=== PATIENT | male | born 1980 | race Caucasian/White ===

== ENCOUNTER → 2017-06-26 08:41 | Outpatient (CLI) | payer OTHER, SELFPAY ==
[2017-06-26 12:22] LABS: Absolute Lymphocyte Count 1.35 X10^3/ul (0.83-4.51); Absolute Neutrophil Count 3.4 X10^3/uL (2.0-7.7); Basophil# 0.04 X10^3/uL; Basophil% 0.7 % (0-1); Eosinophil# 0.12 X10^3/uL; Eosinophils% 2.2 % (0-5); Hematocrit 45.9 % (40-54); Hemoglobin 15.6 g/dl (13.0-16.5); Lymphocyte # 1.35 X10^3/ul (4.0); Mean Corpuscular Hgb 30.3 pg (27.0-32.0); Mean Corpuscular Volume 89.1 fL (80-94); Mean Platelet Vol. 11.6 fl (6.2-12.0); Monocyte# 0.54 X10^3/uL; Neutrophil # 3.35 X10^3/uL (2.7-7.7); Neutrophil % 61.9 % (47-70); Platelet Count 233 K/mm3 (150-450); RBC Distribution Width CV 12.4 % (11.6-14.6); RBC Distribution Width SD 40.3 fl (35.1-43.9); Red Blood Count 5.15 M/mm3 (4.6-6.2); White Blood Count 5.4 K/mm3 (4.4-11.0)
[2017-06-26 12:35] LABS: POSITIVE COUNT NO; POSITIVE DIFFERENTIAL NO; POSITIVE MORPHOLOGY NO
[2017-06-26 12:38] LABS: ALB/GLOB Ratio 1.4 RATIO (0.9-2.4); AST(SGOT) 16 U/L (15-37); Alanine Aminotransfer ALT/SGPT 29 U/L (16-61); Albumin, Serum 4.3 g/dL (3.2-5.0); Alkaline Phosphatase 60 U/L (45-117); Anion Gap 7 (5-15); BUN 17 mg/dL (7-18); BUN/Creat Ratio 15.9 RATIO (10-20); Calcium,Total 9.1 mg/dL (8.5-10.1); Chloride 103 mmol/L (98-107); Cholesterol 185 mg/dL (200); Creatinine, Serum 1.07 mg/dL (0.70-1.30); EST Glomerular Filtration Rate 82 mL/min (>60); Est Glom Filt Rate - Afr Amer 100 mL/min (>60); Globulin 3.1 g/dL (2.2-4.2); Glucose 85 mg/dL (74-106); High Density Lipoprotein 69 mg/dL; Potassium 4.3 mmol/L (3.5-5.1); Protein, Total 7.4 g/dL (6.4-8.2); Sodium Level 138 mmol/L (136-145); Triglycerides 63 mg/dL; Very Low Density Lipoprotein 13 mg/dL (5-40)
[2017-06-26 12:46] LABS: Vitamin D,25 Hydroxy 12.2 ng/mL (19.95-100.01)
[2017-06-26 16:51] LABS: Vitamin B12 707 pg/mL (211-911)
[2017-06-28 16:53] LABS: Endomysial Antibody IgA Negative (Negative)
[2017-06-29 16:05] LABS: Immunoglobulin A 201 mg/dL (90-386); t-Transglutaminase IgA <2 U/mL (0-3)
== END ==
PROVIDERS: Family Provider Family Medicine; PCP Family Medicine; Visit Provider Family Medicine
DX: K90.9 Intestinal malabsorption, unspecified (principal); E55.9 Vitamin D deficiency, unspecified; R53.83 Other fatigue; M79.1 Myalgia; Z83.42 Family history of familial hypercholesterolemia; Z13.220 Encounter for screening for lipoid disorders
CPT/HCPCS: 36415; 80053; 80061; 82306; 82607; 82784; 83516; 85025; 86255

== ENCOUNTER → 2018-06-28 17:25 | Outpatient (CLI) | payer OTHER, SELFPAY ==
[2018-06-28 18:16] LABS: Absolute Lymphocyte Count 1.61 X10^3/ul (0.83-4.51); Absolute Neutrophil Count 7.9 X10^3/uL (2.0-7.7); Basophil# 0.01 X10^3/uL; Basophil% 0.1 % (0-1); Eosinophil# 0.12 X10^3/uL; Eosinophils% 1.2 % (0-5); Hematocrit 44.6 % (40-54); Hemoglobin 14.6 g/dl (13.0-16.5); Lymphocyte # 1.61 X10^3/ul (4.0); Lymphocyte % 15.4 % (19-41); Mean Corp Hgb Conc 32.7 g/gl (32-36); Mean Corpuscular Hgb 29.9 pg (27.0-32.0); Mean Corpuscular Volume 91.2 fL (80-94); Mean Platelet Vol. 10.8 fl (6.2-12.0); Monocyte# 0.81 X10^3/uL; Monocyte% 7.8 % (0-10); Neutrophil # 7.87 X10^3/uL (2.7-7.7); Neutrophil % 75.4 % (47-70); POSITIVE COUNT NO; POSITIVE DIFFERENTIAL NO; POSITIVE MORPHOLOGY NO; Platelet Count 300 K/mm3 (150-450); RBC Distribution Width CV 12.1 % (11.6-14.6); RBC Distribution Width SD 40.2 fl (35.1-43.9); Red Blood Count 4.89 M/mm3 (4.6-6.2); White Blood Count 10.4 K/mm3 (4.4-11.0)
[2018-06-28 18:40] LABS: ALB/GLOB Ratio 1.1 RATIO (0.9-2.4); AST(SGOT) 17 U/L (15-37); Alanine Aminotransfer ALT/SGPT 24 U/L (16-61); Albumin, Serum 4.2 g/dL (3.2-5.0); Alkaline Phosphatase 75 U/L (45-117); Anion Gap 7 (5-15); BUN 18 mg/dL (7-18); BUN/Creat Ratio 18.2 RATIO (10-20); Calcium,Total 9.2 mg/dL (8.5-10.1); Chloride 105 mmol/L (98-107); Creatinine, Serum 0.99 mg/dL (0.70-1.30); EST Glomerular Filtration Rate 90 mL/min (>60); Est Glom Filt Rate - Afr Amer 108 mL/min (>60); Globulin 3.7 g/dL (2.2-4.2); Glucose 85 mg/dL (74-106); Potassium 3.8 mmol/L (3.5-5.1); Protein, Total 7.9 g/dL (6.4-8.2); Sodium Level 138 mmol/L (136-145)
== END ==
PROVIDERS: Family Provider Family Medicine; PCP Family Medicine; Referring Provider Family Medicine; Visit Provider Family Medicine
DX: R53.83 Other fatigue (principal); R05 Cough
CPT/HCPCS: 80053; 85025

== ENCOUNTER 2018-09-02 03:36 | Emergency (ER) | payer OTHER, SELFPAY ==
[2018-09-02 03:37] VITALS: BP 141/96; PULSE 80; RESP 16; TEMP 36.5; O2SAT 96; BMI 23.4
--- NOTE | 2018-09-02 03:51 | ED.VIS.GEN ---
History of Present Illness Chief Complaint: Abd Pain Informant: Patient, Family Narrative: Patient stated he started having some left upper abdominal pain over the last couple days. He has 6 loose bowel movements that were pale yellow since midnight tonight. He has been nauseous with no vomiting. He said decreased oral intake secondary to his symptoms. He is never had this before. No bad food exposures. No sick contacts. No previous abdominal surgeries. Current severity is mild to moderate. He did try a dose of Reglan. 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 No history of ulcerative or inflammatory bowel disease. He does think he has a history of mild irritable bowel syndrome. Current severity is mild to moderate. Past Medical History - Allergies and Home Meds Allergies/Adverse Reactions: Allergies No Known Allergies Allergy (Verified 09/02/18 03:39) Primary Care Physician: Marcella Loo DO [Primary Care Provider] - Prior records reviewed: Yes Past Medical History: - - Reviewed with patient Surgical History: - - Reviewed with patient Lives: Spouse/ Significant Other Smoking Status: Never smoker Alcohol: None Drugs: None Review of Systems General: Denies: Chills, Fever, Sweats Eyes: Denies: Visual changes - bilaterally, Diplopia ENT: Denies: Rhinorrhea, Sore throat Cardiovascular: Denies: Chest pain, Palpitations Respiratory: Denies: Dyspnea, Cough, Dyspnea on exertion Gastrointestinal: Reports: Abdominal pain, Nausea, Diarrhea. Denies: Vomiting, Melena, Hematochezia Genitourinary: Denies: Dysuria, Hematuria, Frequency Musculoskeletal: Denies: Back pain, Extremity Pain Skin: Denies: Rash, Wounds Neurological: Denies: Headache, Weakness, Numbness Physical Exam Vital Signs/Narrative: Vital Signs Temp Pulse Resp BP Pulse Ox 09/02/18 03:37 97.7 F L 80 16 141/96 H 96 General: Well nourished, Well developed, No Acute Distress Head: Normocephalic, Atraumatic Eyes: Perrl, EOMI ENT: Moist mucous membranes, No rhinorrhea Neck: Supple, Nontender Cardiovascular: Regular rate, Regular rhythm, No murmurs Respiratory: No distress, CTA bilaterally, Chest nontender Abdomen: Soft, Nondistended, Normal bowel sounds, Tender - Tender epigastric and left upper quadrant. Negative for: Nontender, Guarding, Rebound tenderness, Mass Back: Nontender, Normal Inspection Extremities: Nontender, No edema Skin: Normal color, No rash Neurological: Alert, Oriented x3, Cranial nerves II-XII grossly intact, Normal Strength, Normal Sensation Psychological: Normal affect, Normal Mood Diagnostic/Tx/Re-eval - Medical Decision Making Given IV fluids 2L and Zofran. Given Imodium. Lab work obtained and felt much better after fluids and Zofran. No further bowel movements in the department. Lab work shows a slightly elevated BUN only. Likely prerenal related. Creatinine normal. CBC complete metabolic panel and lipase otherwise normal. I think the patient has gastroenteritis. We discussed doing a CT of his abdomen but I do not think this is high yield. The patient also does not feel like he needs it. I do not think he has inflammatory bowel disease. I do not think he has C. difficile. I think he likely just has a viral diarrhea. We will continue Imodium. He did not want Toradol. We will treat this symptomatically and follow-up as an outpatient. ED Disposition - Plan for ED Patient: Disposition: [facility] Diagnosis: Gastroenteritis Instructions: Treating Diarrhea Prescriptions: Ondansetron [Zofran Odt] 4 mg PO Q8H PRN PRN #10 tab PRN Reason: Nausea Referrals: Marcella Loo DO [Primary Care Provider] -
[2018-09-02] MEDS: Ondansetron 4 MG/2 ML Vial IV (03:56)
[2018-09-02] MEDS: Loperamide 2 MG Capsule 4 MG PO (03:56)
[2018-09-02] MEDS: 0.9% Normal Saline 1,000 ML 1000 ML IV ×2 (03:56→04:43)
[2018-09-02 04:03] LABS: Absolute Lymphocyte Count 1.48 X10^3/ul (0.83-4.51); Absolute Neutrophil Count 3.5 X10^3/uL (2.0-7.7); Basophil# 0.01 X10^3/uL; Basophil% 0.2 % (0-1); Eosinophil# 0.08 X10^3/uL; Eosinophils% 1.4 % (0-5); Hematocrit 43.5 % (40-54); Hemoglobin 15.3 g/dl (13.0-16.5); Lymphocyte # 1.48 X10^3/ul (4.0); Mean Corp Hgb Conc 35.2 g/gl (32-36); Mean Corpuscular Hgb 30.7 pg (27.0-32.0); Mean Corpuscular Volume 87.3 fL (80-94); Mean Platelet Vol. 10.1 fl (6.2-12.0); Monocyte# 0.66 X10^3/uL; Monocyte% 11.6 % (0-10); Neutrophil # 3.46 X10^3/uL (2.7-7.7); Neutrophil % 60.8 % (47-70); Platelet Count 240 K/mm3 (150-450); RBC Distribution Width CV 12.4 % (11.6-14.6); RBC Distribution Width SD 39.6 fl (35.1-43.9); Red Blood Count 4.98 M/mm3 (4.6-6.2); White Blood Count 5.7 K/mm3 (4.4-11.0)
[2018-09-02 04:07] LABS: POSITIVE COUNT NO; POSITIVE DIFFERENTIAL NO; POSITIVE MORPHOLOGY NO
[2018-09-02 04:18] LABS: ALB/GLOB Ratio 1.2 RATIO (0.9-2.4); AST(SGOT) 18 U/L (15-37); Alanine Aminotransfer ALT/SGPT 29 U/L (16-61); Alkaline Phosphatase 80 U/L (45-117); Anion Gap 6 (5-15); BUN 22 mg/dL (7-18); BUN/Creat Ratio 19.8 RATIO (10-20); Calcium,Total 9.1 mg/dL (8.5-10.1); Chloride 108 mmol/L (98-107); Creatinine, Serum 1.11 mg/dL (0.70-1.30); EST Glomerular Filtration Rate 78 mL/min (>60); Est Glom Filt Rate - Afr Amer 95 mL/min (>60); Estimated Creatinine Clearance 86.44 ml/min; Globulin 3.2 g/dL (2.2-4.2); Glucose 97 mg/dL (74-106); Lipase 112 U/L (73-393); Potassium 3.8 mmol/L (3.5-5.1); Protein, Total 7.2 g/dL (6.4-8.2); Sodium Level 142 mmol/L (136-145)
[2018-09-02 05:30] VITALS: BP 122/67; PULSE 70; RESP 16; O2SAT 100
== END 2018-09-02 05:30 | disposition home or self-care (01) ==
PROVIDERS: Emergency Provider Emergency Medicine; Family Provider Family Medicine; PCP Family Medicine
DX: K52.9 Noninfective gastroenteritis and colitis, unspecified (principal)
CPT/HCPCS: 80053; 83690; 85025; 96361; 96374; 99284; J7030; A4216; J2405

== ENCOUNTER → 2019-07-19 08:55 | Outpatient (CLI) | payer OTHER, SELFPAY | PROVIDERS: PCP Family Medicine; Visit Provider Family Medicine | DX: B34.9 Viral infection, unspecified (principal) | CPT/HCPCS: 87633 ==

== ENCOUNTER → 2019-11-13 17:43 | Outpatient (CLI) | payer OTHER, SELFPAY | PROVIDERS: PCP Family Medicine; Referring Provider Family Medicine; Visit Provider Family Medicine | DX: R50.9 Fever, unspecified (principal); R05 Cough; M79.10 Myalgia, unspecified site | CPT/HCPCS: 87635; G2023; U0003 ==

== ENCOUNTER → 2020-03-16 09:15 | Outpatient (CLI) | payer OTHER, SELFPAY | PROVIDERS: PCP Family Medicine; Visit Provider Family Medicine | DX: U07.1 COVID-19 (principal) | CPT/HCPCS: 87635; U0003 ==

== ENCOUNTER → 2020-06-25 | Outpatient (CLI) | payer OTHER, SELFPAY ==
[2020-06-25 10:48] LABS: Probe Check PASS; Specimen Processing Control PASS
== END | disposition home or self-care (01) ==
LOC: LABSPEC 08:29
PROVIDERS: PCP Family Medicine; Visit Provider Family Medicine
DX: R05 Cough (principal); Z20.822 Contact with and (suspected) exposure to COVID-19
CPT/HCPCS: 87635; U0002

== ENCOUNTER → 2020-11-17 08:46 | Outpatient (CLI) | payer OTHER, SELFPAY ==
--- NOTE | 2020-11-17 08:58 | RAD_ITS ---
STUDY: X-RAY - ABDOMEN/PELVIS REASON FOR EXAM: Male, 40 years old. Left-sided flank pain for 1.5 years.. Question kidney stones. TECHNIQUE: Two AP supine views of the abdomen and pelvis. COMPARISON: None. FINDINGS: Normal visualized lung bases. There is an unremarkable bowel gas pattern. There is no demonstrated free abdominal air. The visualized liver, spleen and kidneys are grossly normal in size and morphology. There are calcified phleboliths in the pelvis. Normal visualized osseous structures. RAD/Abdomen Single View IMPRESSION: No visualized renal or ureteral calculi. There is no evidence for acute intra-abdominal or pelvic process. Electronically Signed: Lyle Robles DO at 16:59 EDT Tel [phone], Service support ,
== END ==
PROVIDERS: PCP Family Medicine; Referring Provider Family Medicine; Visit Provider Family Medicine
DX: N20.0 Calculus of kidney (principal); R10.9 Unspecified abdominal pain
CPT/HCPCS: 74018

== ENCOUNTER → 2021-05-04 | Outpatient (CLI) | payer OTHER, SELFPAY | END | disposition home or self-care (01) | LOC: LABSPEC 12:25 | PROVIDERS: PCP Family Medicine; Visit Provider Family Medicine | DX: R05.9 Cough, unspecified (principal) | CPT/HCPCS: 87635; U0005; U0003 ==

== ENCOUNTER → 2021-11-24 | Outpatient (CLI) | payer BC, SELFPAY | END | disposition home or self-care (01) | PROVIDERS: PCP Family Medicine; Visit Provider Family Medicine | DX: Z20.828 Contact with and (suspected) exposure to other viral communicable diseases (principal) | CPT/HCPCS: 87635; U0003; U0005 ==

== ENCOUNTER → 2024-01-03 | Outpatient (CLI) | payer BC, SELFPAY ==
--- NOTE | 2024-01-03 17:47 | US_ITS ---
STUDY: SUPERFICIAL ULTRASOUND REASON FOR EXAM: Male, 43 years old. MASS IN NECK TECHNIQUE: Ultrasound evaluation of the posterior neck was performed with real-time and static carbajal-scale imaging. COMPARISON: None. FINDINGS: Posterior neck: There are 3.4 x 3.1 and 1.5 x 1.3 cm heterogeneous hypoechoic masses in the subcutaneous fat, corresponding to the region of palpable abnormality. US/Head/Neck Soft Tissue IMPRESSION: Hypoechoic masses in the posterior subcutaneous tissues. Lipomas are the leading consideration. More aggressive masses would be considered less likely. Electronically Signed: Trevon Quintanilla MD at 18:22 EDT ,
== END | disposition home or self-care (01) ==
PROVIDERS: PCP Family Medicine; Referring Provider Surgery Plastic and Reconstructive Surgery; Visit Provider Surgery Plastic and Reconstructive Surgery
DX: R22.1 Localized swelling, mass and lump, neck (principal)
CPT/HCPCS: 76536

== ENCOUNTER 2024-01-10 05:58 | Day surgery (SDC) | payer BC, SELFPAY ==
[2024-01-10] VITALS (10 sets, daily range): BP systolic 86–119; BP diastolic 47–81; PULSE 65–91; RESP 14–16; TEMP 35.9–36.2; O2SAT 94–100; BMI 26.0
--- NOTE | 2024-01-10 | MASS_PTH ---
PATIENT: NATHEN RABAGO LOC: [facility] [place] U#:[id number] AGE/SX: 43/M ROOM: RE01/10/[address]: Dr. Dwaine Berman MD : 1980 BED: DIS: 01/10/2024 SPEC #: [id number] RECD: 01/10/24 10:43 STATUS: JEREMY MOORE #: [id number] STACIA: 01/10/24 00:[address]: Dwaine Berman DEPT: SURGICAL PATHOLOGY RECD BY: Bakari Bush ENTERED: 01/10/24 10:44 SP TYPE: Mass OTHR DR: Dr. Marcella Loo, DO Tissues: A - Back, NOS B - Back, NOS Procedures: Surgery Specimen Level IV HEADER OPERATION: Excision of back mass with closure PRE-OP DIAGNOSIS: Mass in neck TISSUE SUBMITTED: A- Upper back mass 6cm x 3cm, B- Upper back mass #2, 3cm x 2cm MICROSCOPIC DIAGNOSIS A. Soft tissue mass of upper back, excision: Mature adipose tissue consistent with lipoma. Focal neuroma. See comment. B. Soft tissue mass of upper back #2, excision: Mature adipose tissue consistent with lipoma. AM/mr 01/11/2024 COMMENT A. Immunohistochemistry ([id number]) supports the above diagnosis. Case has been reviewed in consultation with Dr. Zuniga who concurs with the above diagnosis. IDC:SJ MICROSCOPIC DESCRIPTION Slides are reviewed. GROSS DESCRIPTION A. Received in fixative is one container labeled with the patient's name and designated Upper back mass. The specimen consists of a piece of adipose tissue measuring 5.5 x 3.0 x 2.3cm. Sections reveal yellow adipose cut surfaces without area of necrosis, hemorrhage or cystic degeneration. Accounting Manager Assistant Controller sections are submitted in four cassettes. B. Received in fixative is one container labeled with the patient's name and designated Upper back mass #2. The specimen consists of a piece of adipose tissue measuring 3.0 x 2.0 x 0.7cm. Sections reveal yellow adipose cut surfaces without area of necrosis, hemorrhage or cystic degeneration. Accounting Manager Assistant Controller sections are submitted in three cassettes. 01/10/2024 TC:1 CPT:67003,63647
--- NOTE | 2024-01-10 | IMM_PTH ---
PATIENT: NATHEN RABAGO LOC: [facility] [place], [place] U#:[id number] AGE/SX: 43/M ROOM: RE01/10/[address]: Dr. Dwaine Berman MD : 1980 BED: DIS: 01/10/2024 SPEC #: [id number] RECD: 01/11/24 12:11 STATUS: JEREMY REQ #: [id number] STACIA: 01/10/24 00:[address]: Dwaine Berman DEPT: IMMUNOHISTOCHEMISTRY RECD BY: Rogelio Kebede ENTERED: 01/11/24 12:12 SP TYPE: IMMUNO OTHR DR: Dr. Marcella Loo, Tissues: A - Back, NOS Procedures: CD56 (add) KI-67 (add) P53 (add) Vimentin (add) NEUROFIL (add) Pankeratin (initial) NSE (add) S-100 (add) PHYSICIAN & INSTITUTION [place] [id number] SPECIMEN INFORMATION: Tissue Source: A- Upper back mass Clinical Info: Mass in neck Specimen Number: [id number] CPT code: 69652,70859a0 METHODOLOGY: Deparaffinized sections of prefer/formalin-fixed tissue or PAP/DQ stained slides are incubated with monoclonal/polyclonal antibodies/oligonucleotide probes. Localization is made via biotin free immunoperoxidase method. Appropriate controls are performed and reacted as expected. Results on target cell population are indicated in the following table: RESULTS: ANTIBODY / CLONE RESULT Block A1 AE1-3 (AE1/AE3/PCK26) negative S-100 (4C4.9) positive Neurofil (2F11) positive CD56 (123C3.D5) positive NSE Neuron Specific Enolase positive P53 (DO-7) negative, null pattern Ki-67 (30-9) negative Vimentin (V9) positive These tests were developed and their performance characteristics determined by [facility]. They may not have been cleared or approved by the U.S. Food and Drug Administration. The FDA has determined that such clearance or approval is not necessary. The above immunohistochemical/dualISH markers are ordered and reviewed by the Pathologist. INTERPRETATION: A. Soft tissue mass of back, excision: Consistent with Neuroma AM:david 01/12/2024
[2024-01-10] MEDS: Lactated Ringers 1,000 ML 15 ML IV (06:40)
--- NOTE | 2024-01-10 06:40 | PCM.HP.STD ---
HPI - General HPI Narrative Josh Kohler is a 43-year-old who presents today for a left posterior neck mass. 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 He denies any constitutional symptoms. He is otherwise healthy. He does not smoke. No hormonal imbalances or any endocrine problems. When the lipoma from this location was removed in 2009, he reports that he did not get any imaging. Current Encounter (DATE OF SURGERY H&P UPDATE): I saw and examined the patient this morning in pre-operative holding. We discussed risks and benefits of today's surgery and they would like to proceed. I reviewed imaging (subcutaneous masses, likely lipomas, on US - There were two). NO CHANGE in health history since last seen and evaluated. Ready to proceed with surgery. [facility] Medical History Mass (~01/05/24) Wears glasses Alcohol use Non-smoker History of seasonal allergies Home Medications ?Medication ?Instructions ?Recorded ?Last Taken ?Type oxycodone 5 mg tablet 5 mg PO BID PRN pain 5 days #10 01/10/24 Unknown Rx tabs Allergy/AdvReac Type Severity Reaction Status Date / Time No Known Allergies Allergy Verified 01/03/24 15:01 Family History Father Hypertension Mother Osteoporosis Sister Thyroid disorder Surgical History Hx of right inguinal hernia repair Hx of left inguinal hernia repair Social History Smoking Status: Never smoker substance use type: does not use additional social history: denies vaping, denies marijuana use, denies edibles, denies aspiring and ibuprofen use Vital Signs Vital Signs Vital Signs: 01/10/24 06:36 01/10/24 06:37 Temperature 97.1 F L Temperature Source Temporal Pulse Rate 72 Respiratory Rate 16 Respiratory Pattern Normal Blood Pressure 115/75 Blood Pressure Mean 88 Blood Pressure Source Monitor Blood Pressure Position Sitting Blood Pressure Location Right Arm Pulse Ox 99 Oxygen Delivery Method Room Air Weight Weight: 171 lb 8.314 oz Body Mass Index (BMI) 26.0 Physical Exam Narrative 8 x 7 cm mobile likely subcutaneous mass just left of midline on his posterior neck about the level of C7-T1. It is not tender to palpation. There is a previous well-healed scar from his past excision. No neck lymphadenopathy Assessment & Plan Assessment/Plan (1) Mass in neck: PLAN: Plan INTERVAL H&P PLAN, DATE OF SURGERY: We will proceed with surgery today. I marked the mass with the patient in agreement that this was the correct location for excision today.
--- NOTE | 2024-01-10 06:57 | OP.PCM_ITS ---
Operative Report Date of Procedure: 01/10/24 Surgery/Procedure Date: 10 January 2024 Incision/Procedure Start Time: 7:49 am Incision Close/Procedure End Time: 7:25 am PATIENT: Josh Kohler PRE-OPERATIVE DIAGNOSIS: Posterior neck/upper back mass POST-OPERATIVE DIAGNOSIS: Same PROCEDURES PERFORMED: 1) Excision of subcutaneous mass (more lateral/back and neck), 6 x 3 cm, CPT: 57557 2) Excision of subcutaneous mass (medial/central back), 3 x 2 cm, CPT: 33095 3) Intermediate closure of wound, 5 cm, CPT 41429 (Same intermediate closure for both masses) OPERATIVE FINDINGS: * Two fatty masses, adjacent to one another and well circumscribed (medial mass was encased in scar, lateral mass was underneath the trapezius fascia). 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 A similar mass, found to be a benign lipoma, was removed from the same location in 2009, but has since returned. We discussed risks of infection, bleeding, damage to surrounding structures, return of the mass and need for repeat surgeries, healing problems/dehiscence of the wound and need for wound care, and risks from anesthesia. OPERATIVE DETAILS: The patient was correctly notified in preoperative holding, and I marked them (the mass was confirmed, the patient agreed with the site marking). They were taken back to the operating room where they were a dministered general anesthesia and placed in the prone positioning. Care was taken to pad all bony prominences and protect the face and eyes with padding. Once appropriate level of anesthesia was obtained, the site was prepped and draped in sterile fashion. A 15 blade scalpel was used to make a direct incision over the mass (used previous scar from his surgery), and dissection was carried out with Bovie electrocautery around the mass which was in the subcutaneous layer. Dissection was carried out with tenotomy scissors around the more lateral mass (underneath the trapezius fascia) and it was removed in once piece and sent to pathology. Hemostasis was obtained with Bovie electrocautery and Vicryl tie around a perforating vessel. The wound was irrigated with copious amounts of normal saline. It measured 6 x 3 centimeters. Through the same incision, dissection was carried out with tenotomy scissors around a more medial mass that was encased in scar (possibly from the previous lipoma excision in 2009) and it was removed in once piece and sent to pathology. Hemostasis was obtained with Bovie electrocautery. The wound was irrigated with copious amounts of normal saline. It measured 3 x 2 centimeters. Attention was then turned to intermediate closure of the wound, which was 5 centimeters long. Deep sutures were placed in the superficial fascial layer with 2-0 PDS, and then deep dermal sutures were placed with 3-0 Monocryl followed by running subcuticular 3-0 Monocryl. A local block was then performed with 20 cc of 0.25% Marcaine with 1-200,000 epinephrine. Steri-Strips were applied (with running subcuticular Monocryl tails included) and a Primapore dressing was placed on top. The patient tolerated the procedure well and was awakened and taken the PACU in stable condition. ASA: 1 EBL: 10 cc Anesthesia: General And local block with 20 cc of 0.25% Marcaine with 1-200,000 epinephrine IVF: 1200 cc of lactated ringers solution UOP: Unmeasured no Mahoney Specimens: Mass from posterior neck sent to pathology POST-OPERATIVE PLAN: Follow-up in 1 week. Will review path at that time. No heavy lifting or exercise until cleared. Steri-Strips will be removed and tails from the suture ends trimmed at clinic follow-up. Okay to remove Primapore dressing in 48 hours.
--- NOTE | 2024-01-10 07:07 | PRE.ANES_ITS ---
ASA Classification* ASA Classification ASA Classification: 2 Assessment & Plan Anesthesia* Anesthesia Assessment Anesthesia Assessment: Discussed sedation and/or anesthesia options, risks, benefits, and alternatives with patient/parents/legal guardian/POA. Questions invited. The patient/parents/legal guardian/POA seems to understand and agrees to proceed with anesthesia plan. Reviewed the physical assessment, medical history, allergy history and patient home medications list prior to surgery/procedure/anesthetic and documented any changes. Performed airway and anesthesia risk assessments. Anesthesia Type Anesthesia Type: General (see written pre anesthesia record for full assessment) Anesthesia Focused Assessment* Temperature: 97.1 F Pulse Rate: 72 Blood Pressure: 115/75 Respiratory Rate: 16 Pulse Ox: 99 Airway Assessment Mouth opens: >3 cm Mallampati Score: II Focused Labs Anesthesia Preop lab: CBC WBC 5.7 K/mm3 (4.4-11.0) 09/02/18 03:50 RBC 4.98 M/mm3 (4.6-6.2) 09/02/18 03:50 Hgb 15.3 g/dl (13.0-16.5) 09/02/18 03:50 Hct 43.5 % (40-54) 09/02/18 03:50 Plt Count 240 K/mm3 (150-450) 09/02/18 03:50 CHEMISTRY Potassium 3.8 mmol/L (3.5-5.1) 09/02/18 03:50 Sodium 142 mmol/L (136-145) 09/02/18 03:50 BUN 22 mg/dL (7-18) H 09/02/18 03:50 Creatinine 1.11 mg/dL (0.70-1.30) 09/02/18 03:50 Glucose 97 mg/dL (74-106) 09/02/18 03:50 COAG Pre-Assessment Diagnosis/Proposed Procedure Planned Operative Procedure(s): EXCISION OF BACK LIPOMA WITH CLOSURE Anesthesia History Anesthesia History - general operator: Anesthesia History - general operator Hx Hospitalization No 01/03/24 15:02 Any Problems With Anesthesia No 01/03/24 15:02 Cholinesterase deficiency No 01/03/24 15:02 You/Your Family Experience No 01/03/24 15:02 fever (hyperthermia) with Relationship Recent Exposure to Contagious No 01/10/24 06:36 Disease Does patient have nerve No 01/03/24 15:02 stimulator Patient instructed to have device shut off --Does patient have Pacemaker No 01/10/24 06:37 or ICD? When Was Last Pacemaker Check QUESTION #4 FULL TEXT: You/Your Family Experience fever (hyperthermia) with Anesthesia Last Oral Intake Last Oral intake: Last Oral Intake NPO since 00:00 01/10/24 06:37 Meds taken in AM with sips of No 01/10/24 06:37 water? Meds patient instructed to take am of surgery PONV PONV - general operator: PONV - general operator Female No 01/03/24 15:02 HX of Motion Sickness Yes 01/03/24 15:02 HX of N/V After Surgery No 01/03/24 15:02 Non-Smoker Yes 01/03/24 15:02 Duration of Surgery greater No 01/03/24 15:02 than 60 minutes Number of Risk Factors 2 01/03/24 15:02 PONV Score Moderate Risk 01/03/24 15:02 Height & Weight Height & Weight: Anesthesia: Height & Weight Height 5 ft 8 in 01/10/24 06:37 Weight: 77.8 kg 01/10/24 06:37 Body Mass Index (BMI) 26.0 01/10/24 06:37 Respiratory Assessment Respiratory Assessment - general operator: Respiratory Tract Infection Hx - general operator Hx Respiratory Tract Infection No 01/03/24 15:02 STOP Sleep Apnea STOP Sleep Apnea - general operator: STOP Sleep Apnea - general operator Hx Hypertension No 01/03/24 15:02 Hx Sleep Apnea No 01/03/24 15:02 CPAP BIPAP Do you snore loudly (louder No 01/03/24 15:02 than talking or can be heard Do you often feel tired/ No 01/03/24 15:02 fatigued/ sleepy during daytime? Has anyone observed you stop No 01/03/24 15:02 breathing during sleep? STOP Results Negative 01/03/24 15:02 QUESTION #5 FULL TEXT : Do you snore loudly (louder than talking or can be heard through closed doors)? 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 Specify any problems Hx of Preganancy in last 3 N/A 01/03/24 15:02 Months Nurse Filling Out Transfusion [email or web address] 01/03/24 15:02 & Questions: Date: 01/03/24 01/03/24 15:02 Time: 15:03 01/03/24 15:02 Patient unable to answer at this time (ie. confused, unrespo /Reproduction History /Reproductive History - general operator: /Reproductive Hx- general operator Hx Now No 01/03/24 15:02 Gestational Age (in weeks): EDC: Hx Hx Para Hx Section SAB No 01/03/24 15:02 Active Medications Active Medications: Current Medications Generic Name Dose Route Start Last Admin Trade Name Freq PRN Reason Stop Dose Admin Cefazolin Sodium 2 gm/ Sodium 110 mls @ 150 mls/hr 01/10/24 07:30 Chloride IV 01/10/24 08:13 PREOP ONE Lactated Ringer's 1,000 mls @ 15 mls/hr 01/10/24 06:15 01/10/24 06:40 IV 15 mls/hr .Q48H JIMENA Administration PFSH Medical History Mass (~01/05/24) Wears glasses Alcohol use Non-smoker History of seasonal allergies Home Medications ?Medication ?Instructions ?Recorded ?Last Taken ?Type oxycodone 5 mg tablet 5 mg PO BID PRN pain 5 days #10 01/10/24 Unknown Rx tabs Allergy/AdvReac Type Severity Reaction Status Date / Time No Known Allergies Allergy Verified 01/03/24 15:01 Family History Father Hypertension Mother Osteoporosis Sister Thyroid disorder Surgical History Hx of right inguinal hernia repair Hx of left inguinal hernia repair Social History Smoking Status: Never smoker substance use type: does not use additional social history: denies vaping, denies marijuana use, denies edibles, denies aspiring and ibuprofen use Review of Systems (Anesthesia) ROS Narrative System reviewed and no additional complaints, except as documented.
[2024-01-10] MEDS: Cefazolin 2 GM in 0.9% Normal Saline (100mL Bag) 100 ML IV (07:25)
[2024-01-10] MEDS: Bupiv/Epi 0.25% 30 ML Vial (07:49)
--- NOTE | 2024-01-10 08:52 | PCM.POST.ANE ---
Anesthesia: Postop Eval I Current Vital Signs Temperature: 96.6 F Pulse Rate: 87 Blood Pressure: 103/57 Respiratory Rate: 14 Pulse Ox: 95 Oxygen Delivery Method: Room Air Assessment Airway patent: Yes Spontaneous unlabored respirations: Yes Mental status: Awake and Calm nausea: No Vomiting: No Anesthesia Complication: No Fluid Hydration Crystalloid volume administer (ml): 1,400 Total IV fluid infused: 1,400 Progress Note Anesthesia document: Postop Eval 1 completed: Yes
--- NOTE | 2024-01-10 09:22 | POSTOPAN2_ITS ---
Anesthesia Postop Eval I Sum Postop Eval Completion status Anesthesia document: Postop Eval 1 completed: Yes Anesthesia Postop Eval I Summary Anesthesia Postop Eval I Summary: Anesthesia Postop Eval I: Assessment Summary Airway patent Yes 01/10/24 08:52 [email or web address] Spontaneous unlabored Yes 01/10/24 08:52 [email or web address] respirations Mental status Awake,Calm 01/10/24 08:52 [email or web address] nausea No 01/10/24 08:52 [email or web address] Vomiting No 01/10/24 08:52 [email or web address] Anesthesia Postop Eval I: Fluid Summary Crystalloid volume administer 1,400 01/10/24 08:52 [email or web address] (ml) Colloids volume administered ( ml) Blood Product volume administered (ml) Total IV fluid infused 1,400 01/10/24 08:52 [email or web address] Anesthesia Postop Eval I: Summary Notes Anesthesia Complication No 01/10/24 08:52 [email or web address] Anesthesia Complication Comment: Post-operative progress note Anesthesia: Postop Eval II Evaluation Mental status: Awake Pain Level: 0 nausea: No Vomiting: No
--- NOTE | 2024-01-10 09:22 | PCM.POSTANE2 ---
Anesthesia Postop Eval I Sum Postop Eval Completion status Anesthesia document: Postop Eval 1 completed: Yes Anesthesia Postop Eval I Summary Anesthesia Postop Eval I Summary: Anesthesia Postop Eval I: Assessment Summary Airway patent Yes 01/10/24 08:52 [email or web address] Spontaneous unlabored Yes 01/10/24 08:52 [email or web address] respirations Mental status Awake,Calm 01/10/24 08:52 [email or web address] nausea No 01/10/24 08:52 [email or web address] Vomiting No 01/10/24 08:52 [email or web address] Anesthesia Postop Eval I: Fluid Summary Crystalloid volume administer 1,400 01/10/24 08:52 [email or web address] (ml) Colloids volume administered ( ml) Blood Product volume administered (ml) Total IV fluid infused 1,400 01/10/24 08:52 [email or web address] Anesthesia Postop Eval I: Summary Notes Anesthesia Complication No 01/10/24 08:52 [email or web address] Anesthesia Complication Comment: Post-operative progress note Anesthesia: Postop Eval II Evaluation Mental status: Awake Pain Level: 0 nausea: No Vomiting: No
== END 2024-01-10 10:50 | disposition home or self-care (01) ==
LOC: SDC 06:02 → AC 06:02
PROVIDERS: PCP Family Medicine; Referring Provider Surgery Plastic and Reconstructive Surgery; Visit Provider Surgery Plastic and Reconstructive Surgery
PROC: (CPT 12032; principal; 2024-01-10 07:20)
DX: D17.1 Benign lipomatous neoplasm of skin and subcutaneous tissue of trunk (principal); Z79.891 Long term (current) use of opiate analgesic; Z87.19 Personal history of other diseases of the digestive system
CPT/HCPCS: 12032; 11406; 00300; 88305; 88341; 88342; J7120; J2405